=== PATIENT | male | born 1935 | race Caucasian/White ===

== ENCOUNTER 2018-06-30 10:05 | Emergency (ER) | payer MEDICARE, OTHER ==
--- NOTE | 2018-06-30 10:51 | ER Document Report ---
ED Medical Screen (RME) - General Chief Complaint: Altered Mental Status Stated Complaint: CONFUSION Time Seen by Provider: 06/30/18 10:49 Mode of Arrival: Ambulatory Information source: Patient, Emergency Med Personnel Notes: This is an 82-year-old man with a history of dementia that was brought into the triage area by the social media content manager. The patient was found wandering the mathis. He apparently lives in [place] close to [place] and states he drove here to "look for his photographic printer Mr. Ulloa". Patient parked somewhere in the parking lot and walked in and got lost in the hospital. He has been unable to locate his car. He does have a note in his pocket that says he has dementia. The social workers are currently trying to get a hold of family members and police have been called to his residence (as per the flatbed truck driver's license). Otherwise, the patient is conversant and has no complaints. - Related Data Allergies/Adverse Reactions: unsure Allergy (Uncoded 06/30/18 10:06) Past Medical History - Social History Chew tobacco use (# tins/day): No Frequency of alcohol use: None Drug Abuse: None Renal/ Medical History: Denies: Hx Peritoneal Dialysis Doctor's Discharge - Discharge Referrals: DAT BEST MD [Primary Care Provider] - Follow up as needed
[2018-06-30 11:16] LABS: ABSOLUTE MONOCYTES (AUTO) 0.4 10^3/uL (0.1-1.4); ABSOLUTE NEUT (AUTO) 4.7 10^3/uL (1.7-8.2); BASOPHILS % (AUTO) 0.3 % (0-2); EOSINOPHILS % (AUTO) 0.5 % (0-6); HEMATOCRIT 39.6 % (37.9-51.0); HEMOGLOBIN 13.4 g/dL (13.5-17.0); LYMPHOCYTES % (AUTO) 15.8 % (13-45); MEAN CORPUSCULAR HEMOGLOBIN 29.6 pg (27.0-33.4); MEAN CORPUSCULAR HGB CONC 33.9 g/dL (32.0-36.0); MEAN CORPUSCULAR VOLUME 87 fl (80-97); MONOCYTES % (AUTO) 6.7 % (3-13); PLATELET COUNT 205 10^3/uL (150-450); RED BLOOD COUNT 4.54 10^6/uL (4.35-5.55); RED CELL DISTRIBUTION WIDTH 15.3 % (11.5-14.0); SEGMENTED NEUTROPHILS % (AUTO) 76.7 % (42-78); TOTAL CELLS COUNTED % (AUTO) 100 %; WHITE BLOOD COUNT 6.2 10^3/uL (4.0-10.5)
[2018-06-30 11:30] LABS: ALANINE AMINOTRANSFERASE 24 U/L (21-72); ALBUMIN 3.7 g/dL (3.5-5.0); ALKALINE PHOSPHATASE 85 U/L (38-126); ANION GAP 11 (5-19); ASPARTATE AMINO TRANSFERASE 18 U/L (17-59); BILIRUBIN,DIRECT 0.2 mg/dL (0.0-0.4); BILIRUBIN,TOTAL 0.5 mg/dL (0.2-1.3); BLOOD UREA NITROGEN 11 mg/dL (7-20); CALCIUM 9.2 mg/dL (8.4-10.2); CARBON DIOXIDE 25 mmol/L (22-30); CHLORIDE 106 mmol/L (98-107); GLUCOSE 101 mg/dL (75-110); POTASSIUM 4.4 mmol/L (3.6-5.0); SODIUM 141.5 mmol/L (137-145); TOTAL PROTEIN 6.7 g/dL (6.3-8.2)
--- NOTE | 2018-06-30 12:41 | ER Document Report ---
ED Dizziness/Weakness - General Chief Complaint: Altered Mental Status Stated Complaint: CONFUSION Time Seen by Provider: 06/30/18 10:49 Mode of Arrival: Ambulatory Information source: Patient, Relative Cannot obtain history due to: Dementia - HPI Patient complains to provider of: Other - This 82-year-old man with a history of dementia presented for evaluation from outpatient services after he attempted to present there to obtain legal research analyst for his mental disability. He is driven himself there this is a second time in the last week which he has. He is otherwise uncertain why he is here, he is uncertain about the location as well as the time is oriented to person. He does have a known history of dementia. He does not have any other health problems that he endorses at this time. He has no other complaints health-related. In speaking to his she notes that he was attempting to go to a trap setter that she has a doctor's appointment as such does not want to come the hospital currently. - Related Data Allergies/Adverse Reactions: unsure Allergy (Uncoded 06/30/18 10:06) Past Medical History - General Information source: Patient, Emergency Med Personnel - Social History Smoking Status: Never Smoker Chew tobacco use (# tins/day): No Frequency of alcohol use: None Drug Abuse: None Family History: None Patient has suicidal ideation: No Patient has homicidal ideation: No Renal/ Medical History: Denies: Hx Peritoneal Dialysis Review of Systems - Review of Systems -: Yes All other systems reviewed and negative Physical Exam - Vital signs Interpretation: Normal - General General appearance: Appears well In distress: None - HEENT Head: Normocephalic Eyes: Normal Conjunctiva: Normal - Abdominal Inspection: Normal Distension: No distension Tenderness: Nontender - Back Back: Normal - Extremities General upper extremity: Normal inspection General lower extremity: Normal inspection - Neurological Neuro grossly intact: Yes Cognition: Inattentive Orientation: Disoriented to person, Disoriented to place Jefferson Coma Scale Eye Opening: Spontaneous Jefferson Coma Scale Verbal: Oriented Shmuel Coma Scale Motor: Obeys Commands Jefferson Coma Scale Total: 15 Course - Re-evaluation Re-evalutation: 06/30/18 19:06 82-year-old man who presents confused having driven here while attempting to find legal research analyst. This is a man with a known history of dementia, contacted his who notes that she knew he was leaving the house. He has no medical complaints at this time but is markedly confused as to where he was going where he sat. Context his as I do not believe is appropriate for this gentleman be driving given that he does not know where he is going at this time is 82 years old and may have multiple medical comorbidities. He is otherwise symptom-free at this time. She agrees to come and pick him up. He has an outpatient appointment scheduled at the neurologist in the coming week , via the sign painter will plan for this patient to undergo reassessment and potential loss of his license. - Laboratory Result Diagrams: 06/30/18 11:01 06/30/18 11:01 Laboratory results interpreted by me: 06/30/18 11:01 Hgb 13.4 L RDW 15.3 H Discharge - Discharge Clinical Impression: Confusion Dementia Qualifiers: Dementia type: unspecified type Dementia behavioral disturbance: without behavioral disturbance Qualified Code(s): F03.90 - Unspecified dementia without behavioral disturbance Condition: Stable Disposition: HOME, SELF-CARE Additional Instructions: You were seen today in the emergency department for being lost. You had an evaluation including a physical exam. You should not drive, your license needs to be taken away, your keys should be taken away, your should not allow you to drive anymore. If you need assistance with transportation you should call for help. Referrals: DAT BEST MD [Primary Care Provider] - Follow up as needed
== END 2018-06-30 13:13 | disposition home or self-care (01) ==
LOC: ER 10:05
DX: F03.90 Unspecified dementia, unspecified severity, without behavioral disturbance, psychotic disturbance, mood disturbance, and anxiety (principal)
CPT/HCPCS: 36415; 80053; 84443; 85025; 99284